=== PATIENT | female | born 1955 | race Caucasian/White ===

== ENCOUNTER 2017-11-19 22:36 | Inpatient (IN) | payer OTHER, SELFPAY ==
[2017-11-19 23:07] LABS: #Basophils 0.1 thou/uL (0.0-0.2); #Eosinphils 0.1 thou/uL (0.0-0.7); #Lymphocytes 1.5 thou/uL (1.20-3.40); #Monocytes 0.7 thou/uL (0.11-0.59); #Neutrophils 6.1 thou/uL (1.40-6.50); %Basophils 0.7 % (0.0-1.0); %Eosinophils 1.2 % (0.0-10.0); %Lymphocytes 17.9 % (21.0-51.0); %Monocytes 8.1 % (0.0-10.0); %Neutrophils 72.2 % (42.0-75.0); Hemoglobin 15.6 g/dL (12.0-16.0); Mean Corpuscular HGB CONC 31.6 g/dL (32.0-36.0); Mean Corpuscular Hemoglobin 32.3 pg (27.0-31.0); Mean Platelet Volume 8.3 fL (7.4-10.4); Platelet Count 196 thou/uL (130-400); RBC Distribution Width 13.2 % (11.5-14.5); Red Blood Cell (RBC) Count 4.81 mill/uL (4.20-5.40); White Blood Cell (WBC) Count 8.4 thou/uL (4.8-10.8)
[2017-11-19 23:13] LABS: PTT 29.3 SEC (22.9-36.1); Prothrombin Time 13.5 SEC (12.0-14.7)
--- NOTE | 2017-11-19 23:14 | RAD ---
CHEST ONE VIEW 11/19/17 HISTORY: Dyspnea. COMPARISON: Chest one view 03/10/17. FINDINGS: Heart size is enlarged. Linear opacities in the lungs are similar to the comparison examination to sl ightly improved. No pneumothorax. No large effusion. IMPRESSION: Cardiomegaly. Likely scarring in the right middle lobe and lingula. POS: [facility]
[2017-11-19 23:31] LABS: ALT (SGPT) 19 U/L (8-55); AST (SGOT) 22 U/L (5-34); Albumin 3.8 g/dL (3.5-5.0); Alkaline Phosphatase 47 U/L (40-150); Anion Gap 20 mmol/L (10-20); BUN (Urea Nitrogen) 50 mg/dL (9.8-20.1); Bilirubin, Total 0.4 mg/dL (0.2-1.2); Calc. Creatinine Clearance 0 mL/min (70-130); Calcium 9.7 mg/dL (7.8-10.44); Carbon Dioxide 27 mmol/L (22-29); Chloride 94 mmol/L (98-107); Estimated GFR-MDRD 17; Globulin 2.8 g/dL (2.4-3.5); Glucose 80 mg/dL (70-105); Protein, Total 6.6 g/dL (6.0-8.3); Sodium 135 mmol/L (136-145)
[2017-11-19 23:35] LABS: CKMB 5.9 ng/mL (0-6.6)
[2017-11-19 23:38] LABS: Troponin I 1.562 ng/mL (< 0.028)
[2017-11-19] MEDS ORDERED: Calcium Chloride 1 GM/10 ML Abboject SYRINGE ONE (23:47)
[2017-11-19] MEDS ORDERED: Insulin Regular 300 UNITS/3 ML VIAL ONE (23:47)
[2017-11-19] MEDS ORDERED: Sodium Bicarb 50 MEQ/50 ML Abboject 8.4% SYRINGE ONE (23:47)
[2017-11-19] MEDS ORDERED: Dextrose 50% Abboject 50 ML SYRINGE ONE (23:47)
[2017-11-20 02:49] LABS: Bilirubin Small (Negative); Blood, Urine Negative (Negative); Clarity CLOUDY (Clear); Glucose, Urine (Dipstick) Negative (Negative); Leukocyte Trace (Negative); Nitrite Negative (Negative); Protein, Urine (Dipstick) Trace mg/dL (Neg-Trace); Specific Gravity, Urine 1.023 (1.002-1.036); Urobilinogen 0.2 mg/dL (0.2-1.0)
[2017-11-20 02:51] LABS: Critical Call Chem Troponin I RESULT DECREASING; Troponin I 1.323 ng/mL (< 0.028)
[2017-11-20 02:51] LABS: Bacteria/HPF None Seen HPF (None Seen)
[2017-11-20 02:54] LABS: Pathc Cast-AUWi Flag 3.11 (0-2.49)
[2017-11-20 03:07] LABS: Hyaline Casts/LPF 4-6 HYALINE CAST LPF (0-3 Hyaline); Renal Epithelial None Seen HPF (0-3); Transitional Epithelial NONE SEEN HPF (0-3); Trichomonas/HPF None Seen HPF (None Seen)
[2017-11-20 03:20] LABS: Lactic Acid 3.5 mmol/L (0.5-2.2)
[2017-11-20 06:01] LABS: Troponin I 1.078 ng/mL (< 0.028)
[2017-11-20 07:35] LABS: #Lymphocytes 0.5 thou/uL (1.20-3.40); #Monocytes 0.1 thou/uL (0.11-0.59); #Neutrophils 7.1 thou/uL (1.40-6.50); %Lymphocytes 6.8 % (21.0-51.0); %Monocytes 1.4 % (0.0-10.0); %Neutrophils 91.8 % (42.0-75.0); Hemoglobin 15.4 g/dL (12.0-16.0); Mean Corpuscular HGB CONC 32.2 g/dL (32.0-36.0); Mean Corpuscular Hemoglobin 32.2 pg (27.0-31.0); Mean Platelet Volume 8.4 fL (7.4-10.4); Platelet Count 187 thou/uL (130-400); RBC Distribution Width 13.2 % (11.5-14.5); Red Blood Cell (RBC) Count 4.77 mill/uL (4.20-5.40); White Blood Cell (WBC) Count 7.7 thou/uL (4.8-10.8)
[2017-11-20 07:47] LABS: Anion Gap 18 mmol/L (10-20); BUN (Urea Nitrogen) 56 mg/dL (9.8-20.1); Calc. Creatinine Clearance 0 mL/min (70-130); Calcium 9.5 mg/dL (7.8-10.44); Carbon Dioxide 29 mmol/L (22-29); Chloride 93 mmol/L (98-107); Estimated GFR-MDRD 19; Glucose 365 mg/dL (70-105); Potassium 5.5 mmol/L (3.5-5.1); Sodium 134 mmol/L (136-145)
[2017-11-20] MEDS ORDERED: Sodium Chloride 0.9% 1,000 ML IV SCH (09:22)
[2017-11-20] MEDS ORDERED: Senokot 8.6 MG TAB PO PRN (09:22)
[2017-11-20] MEDS ORDERED: Guaifenesin DM 100-10/5 ML UDCUP PO PRN (09:22)
[2017-11-20] MEDS ORDERED: cefTRIAXone\\ROCEPHIN 1 GM in Sodium Chloride 0.9% 100 ML IVPB SCH (09:22)
[2017-11-20] MEDS: cefTRIAXone\\ROCEPHIN 1 GM, Syringe 0.4 ML in Sterile Water 9.6 ML SLOW IVP SCH (10:55)
[2017-11-20] MEDS: Azithromycin 500 MG in Sodium Chloride 0.9% 250 ML 250 ML IVPB SCH (10:57)
[2017-11-20] MEDS: Sodium Chloride 0.9% 1,000 ML IV SCH ×2 (11:02→20:32)
[2017-11-20 11:44] VITALS: BMI 55.0
--- NOTE | 2017-11-20 12:18 | ULT ---
BILATERAL RENAL ULTRASOUND: Date: 11/20/17 COMPARISON: None. HISTORY: Renal failure. TECHNIQUE: Multiplanar Mlaone scale sonographic imaging of the kidneys and urinary bladder obtained. FINDINGS: Images of the urinary bladder are grossly unremarkable. Urinary bladder volume is estimated at 247 mL . The right kidney measures 11.3 x 6.1 x 6.5 cm and demonstrates no mass, hydronephrosis, or stone. The left kidney measures 11.1 x 5.1 x 6.5 cm and demonstrates no mass, hydronephrosis, or stone. Detailed assessment of the kidneys, especially the left kidney, is limited on the basis of patient cathy dy habitus. IMPRESSION: Grossly unremarkable renal ultrasound. POS: [facility]
--- NOTE | 2017-11-20 14:13 | HP ---
REASON FOR ADMISSION: Acute respiratory failure with hypoxia, acute encephalopathy, acute COPD exace rbation, possible sleep apnea with hypoventilation, demand ischemia. HISTORY OF PRESENT ILLNESS: The patient gives history of having caries with abscess from last 3 week s. She has been off and on antibiotics, a total of 2 cycles of antibiotics has been given by her den tist. She finally got an incision and drainage done a week back. She had seen Dr. Brown, dentist. Currently, she is on amoxicillin and Flagyl from the 10th of this month. Last night, she was confuse d and became more short of breath. Her finally called EMS and the patient was brought to [facility] room. The patient has not had a sleep study so far due to insurance issues. She was supposed to get a sleep study at Dr. Alex's office, but has not been able to schedule one due to insurance . She saw Dr. Olson, her primary care physician, a week back. No complaints of chest pain or palp itation at present. She is currently at 45 degrees head end elevation in the ER. PAST MEDICAL/SURGICAL HISTORY: Obesity likely obstructive sleep apnea, hypoventilation syndrome due to obesity, diabetes mellitus type 2, dyslipidemia, prior stent to RCA in 06/2012, history of CHF wit h ejection fraction of around 40%, tobacco abuse, eye surgery. CURRENT MEDICATIONS: The patient is on Coreg 25 mg twice daily, Flagyl 500 mg twice daily from 11/16, amoxicillin 500 mg 3 times daily from 11/16/2017, 70/30 insulin 40 units twice daily, Plavix 7 5 mg daily, aspirin 81 mg daily, metformin 1 gram twice daily. ALLERGIES: No known drug allergies. PERSONAL HISTORY: Smokes one pack a day, does not abuse alcohol or drugs. Lives with her . FAMILY HISTORY: Mom at the age of 63 years. She has had history of heart failure. Father at the age of 74 years and she does not recall much about the reason why he . REVIEW OF SYSTEMS: The following complete review of systems was negative, unless otherwise mentioned in the HPI or below: Constitutional: Weight loss or gain, ability to conduct usual activities. Skin: Rash, itching. Eyes: Double vision, pain. ENT/Mouth: Nose bleeding, neck stiffness, pain, tenderness. Cardiovascular: Palpitations, dyspnea on exertion, orthopnea. Respiratory: Shortness of breath, wheezing, cough, hemoptysis, fever or night sweats. Gastrointestinal: Poor appetite, abdominal pain, heartburn, nausea, vomiting, constipation, or diarrhea. Genitourinary: Urgency, frequency, dysuria, nocturia. Musculoskeletal: Pain, swelling. Neurologic/Psychiatric: Anxiety, depression. Allergy/Immunologic: Skin rash, bleeding tendency. PHYSICAL EXAMINATION: GENERAL: The patient is a 62-year-old female who is currently in mild to moderate respiratory distre ss. She is currently on a nonrebreather; here, saturating 94%. VITAL SIGNS: Blood pressure 104/56, pulse 74 per minute, respiratory rate 26 per minute, temperature 98.1 degrees Fahrenheit, saturating 94% on nonrebreather. NECK: Supple, no elevated JVD. HEENT: Extraocular muscles intact. Pupils reacting to light. Oral cavity and mucous membranes are dry. No exudates or congestion. CARDIOVASCULAR: S1, S2 heard. Regular rhythm. RESPIRATORY: Air entry 1+ bilateral. Scattered rhonchi plus bilateral basal rales plus. ABDOMEN: Soft, bowel sounds heard. No tenderness, rigidity or guarding. EXTREMITIES: No peripheral edema or calf tenderness. VASCULAR: Peripheral pulses 1+ bilateral. No ischemic ulcerations or gangrene. CENTRAL NERVOUS SYSTEM: No gross focal deficits seen. The patient is lethargic, but responds to rep eated verbal questions well. PSYCHIATRIC: Cannot be accurately assessed due to her lethargy at present, but no obvious hallucinat ions or delusions. LABORATORY AND X-RAY FINDINGS: EKG done shows normal sinus rhythm at 79 beats per minute. There is poor R-wave progression. White count of 8, H&H 15 and 49, platelet count 196, MCV is 102 with 72% ne utrophils. Potassium was 6.0 with serum bicarbonate of 27 on arrival here, BUN of 50, creatinine 2.8 . BNP 313, albumin is 3.8, troponin I peaking up to 1.32, CK-MB 5.9. Lactic acid was 3.5. Repeat m etabolic panel this morning shows potassium of 5.5, BUN 56, creatinine 2.5. Chest x-ray done shows c ardiomegaly with likely scarring of the right middle lobe and lingula. CLINICAL IMPRESSION AND PLAN: The patient will be admitted to [facility] for acute respiratory failure wit h hypoxia, likely a combination of chronic obstructive pulmonary disease exacerbation, hypoventilatio n syndrome with obesity, and sleep apnea. She also has a troponin of 1.3, likely demand ischemia fro m hypoxia. We will place her on nitro paste 1/2 inch q.8 hourly, aspirin 81 mg daily, Plavix 75 mg d aily. The patient most likely will need BiPAP and will transition her from nonrebreather to BiPAP. She also has acute kidney injury likely a combination of antibiotics and medications that she is taki ng for her tooth abscess plus dehydration. She will be on normal saline at 100 mL per hour. I have consulted Dr. Bolaños for Nephrology. We will continue her on Levemir at 30 units at bedtime for now unt il her renal function improves. We will also continue her Synthroid, empiric Zithromax, and ceftriax one until she comes off BiPAP. Echo with 2D Doppler for LV function and ultrasound of the kidneys as well to rule out obstructive nephropathy.
--- NOTE | 2017-11-20 14:16 | CON ---
DATE OF CONSULTATION: 11/20/2017 RENAL MEDICINE HISTORY OF PRESENT ILLNESS: Ms. Nicholson is a 62-year-old white female who was admitted for acute vahid rtness of breath. She was found to be having COPD exacerbation. Please note she has history of morb id obesity and obstructive sleep apnea. We are now being consulted for her acute kidney injury. REVIEW OF SYSTEMS: Positive for shortness of breath, positive for dry cough, no fever or chills, no diarrhea or constipation, no abdominal pain, no chest pain, no nausea, no vomiting. No joint pains, no new skin rash. Appetite and energy level is decreased. No dysuria, no urinary frequency. No hea dache, no sore throat, no runny nose, no diplopia, no nausea or vomiting, no hematochezia, no melena, no hematemesis. HOME MEDICATIONS: Included the following: Metformin 1000 mg p.o. b.i.d., Benadryl 25 mg q.8 h., Omid nzyme Q 300 mg daily, Crestor 20 mg tab at bedtime, levothyroxine 75 mcg every day, insulin detemir 3 0 units subcutaneous b.i.d., ibuprofen 600 mg p.o. q.6 h, gabapentin 300 mg p.o. b.i.d., furosemide 4 0 mg daily, vitamin D2 400 units day, Farxiga 10 mg q.a.m., Plavix 75 mg once a day, Celexa 40 mg kitty ly, carvedilol 25 mg p.o. b.i.d., Symbicort 2 puffs b.i.d., aspirin 81 mg tab once a day. PAST MEDICAL HISTORY: Obstructive sleep apnea, COPD, type 2 diabetes mellitus, hyperlipidemia, hypot hyroidism, chronic pain, CHF, depression, history of also chronic tobacco use, and coronary artery di sease. PAST SURGICAL HISTORY: Includes the followin. Status post cardiac catheterization with coronary stent placement. 2. Status post eye surgery. SOCIAL HISTORY: The patient currently lives in [place]. She has a history of chronic smoking of 30-pklb-hlrw history. No exposure to any environmental toxic substances. 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 Active lifestyle. FAMILY HISTORY: Noncontributory. ALLERGIES: No known drug allergies. TRAUMA: None. IMMUNIZATIONS: Up to date. HOSPITALIZATIONS: Please see past medical history. PHYSICAL EXAMINATION: VITAL SIGNS: Blood pressure is noted at 124/89 with a heart rate of 89, respiratory rate 20, and pul se ox 97% on 2 liters. GENERAL: Awake, supine, morbidly obese. SKIN: Adequate turgor. HEENT: Pinkish conjunctivae, anicteric sclerae. NECK: No neck mass, no carotid bruits, no JVD. CHEST: No deformities. LUNGS: Decreased breath sounds with occasional wheezing. HEART: Normal sinus rhythm. No murmur, no gallops or rubs. ABDOMEN: Globular, soft, nontender, no masses. EXTREMITIES: Trace edema. NEUROLOGIC: Awake, oriented to 3 spheres. Moving all extremities. No tremors, no asterixis. IMAGING: Chest x-ray of 11/19/2017 showed cardiomegaly with linear opacities in the past in the lung s - baseline findings, no large effusions, no pneumothorax, most likely scarring in the right middle lobe. LABORATORY DATA: Laboratories of 11/20/2017, sodium 134, chloride 93, carbon dioxide 25, potassium i s 5.5, BUN 56, creatinine 2.53, glucose 365, GFR 19 mL per minute, calcium 9.5. Troponin I 1.078. 0 11/19/2017, BUN was 50, creatinine 2.8. Urinalysis of 11/20/2017, specific gravity is 1.023, no casts noted, rbc 4-6, wbc 4-6. ASSESSMENT AND PLAN: 1. Acute kidney injury - I suspect hemodynamically mediated renal dysfunction. Slightly improving r enal function with gentle volume repletion. In addition, urinalysis did not suggest any acute tubula r necrosis, suggested by the absence of any pigmented granular cast. Please note the urine was quite concentrated with a specific gravity of 1.033. Renal ultrasound is currently pending. For the cornell nt, agree with current management. Continue gentle volume repletion. No indication for any dialytic intervention. 2. Hyperkalemia. Potassium was noted to be at 6.0 on admission. She received 1 dose of Kayexalate and this improved the potassium to 5.5. Please note the patient has been taking NSAIDs as well as La six at home. My suggestion is to hold off any diuretics or NSAID use with this patient. Agree with gentle volume repletion, normal saline 100 mL per hour. We will recheck base met and CBC in a.m.
[2017-11-20] MEDS ORDERED: Morphine 2 MG/ML SYRINGE SLOW IVP PRN (14:48)
[2017-11-20] MEDS: Nitroglycerin 2% Ointment 1 INCH/1 GM Packet TOP SCH ×2 (14:57→22:08)
[2017-11-20] MEDS: Heparin 5,000 UNITS/ML VIAL SC SCH ×2 (14:58→20:34)
[2017-11-20] MEDS: Acetaminophen 325 MG TAB PO PRN (16:34)
--- NOTE | 2017-11-20 19:19 | CON ---
DATE OF CONSULTATION: 11/20/2017 REASON FOR CONSULTATION: Shortness of breath. PRIMARY AMBULATORY SERVICE REPRESENTATIVE: Bharat Russo M.D. HISTORY OF PRESENT ILLNESS: Ms. Nicholson is a pleasant 62-year-old obese woman, who recently states s he has mental status changes. She is still confused. She had lots of leveled according to her husba nd. Over the last several weeks, she has had a tooth infection and took high dose nonsteroidal thera py 800 mg every 3 hours for 4 days. She presented with the above in addition to shortness of breath. Her troponin has been mildly elevated. She continues to take prednisone. PAST MEDICAL HISTORY: CAD status post stent placement to the right coronary artery by Dr. Enoc granger, COPD, diabetes mellitus, hypertension, hyperlipidemia. ALLERGIES: None. MEDICATIONS: Include prednisone, Coreg, Amoxil, Plavix, metformin. SOCIAL HISTORY: She continues to smoke one pack per day. FAMILY HISTORY: Positive for CAD. REVIEW OF SYSTEMS: Ten point review of systems is reviewed and as is above negative. PHYSICAL EXAMINATION: GENERAL: She is morbidly obese with BMI of 55. VITAL SIGNS: Blood pressure 127/83, pulse 84, temperature 98.4. NEUROLOGIC: The patient is alert and oriented x3 with no focal neurologic deficits. HEENT: Sclerae without icterus. Mouth has moist mucous membranes with normal pallor. NECK: No JVD. Carotid upstroke brisk. No bruits bilaterally. LUNGS: Clear to auscultation with unlabored respirations. BACK: No scoliosis or kyphosis. CARDIAC: Regular rate and rhythm with normal S1 and S2. No S3 or S4 noted. No significant rubs, mu rmurs, thrills, or gallops noted throughout the precordium. PMI is not displaced. There is no zackery ternal heave. ABDOMEN: Soft, nontender, nondistended. No peritoneal signs present. No hepatosplenomegaly. No ab normal striae. EXTREMITIES: 2+ femoral and 2+ dorsalis pedis pulses. No cyanosis, clubbing, or edema. SKIN: No gross abnormalities. LABORATORY DATA: Hemoglobin 15.4, troponin 1.078, creatinine 2.53. IMPRESSION: 1. Elevated troponin. 2. Shortness of breath. 3. Confusion. 4. Coronary artery disease. 5. Tobacco abuse. RECOMMENDATIONS: Ms. Nicholson now appears to be resting comfortably. Her BNP was now markedly elevat ed at 315. Her increase in troponin is likely secondary to demand ischemia. She does have an occlud ed LAD and likely demand ischemia. Given her creatinine, we would continue with conservative treatme nt. Continue Plavix. We will hold metformin due to renal insufficiency. We would recommend an echo with Doppler. Further recommendations per Dr. Bharat Russo in a.m.
[2017-11-20] MEDS: Mometasone/Formoterol 120 PUFF INHALER INH SCH (19:57)
[2017-11-20] MEDS: Rosuvastatin 20 MG TAB PO SCH (20:33)
[2017-11-20] MEDS: Gabapentin 300 MG CAP PO SCH (20:33)
[2017-11-20] MEDS: Famotidine 20 MG TAB PO SCH (20:33)
[2017-11-20] MEDS: Carvedilol 3.125 MG TAB PO SCH (20:33)
[2017-11-20] MEDS ORDERED: Insulin Detemir 100 UNITS/ML 30 UNITS in Pre-Filled Syringe 1 EACH SC SCH (21:00)
[2017-11-20] MEDS ORDERED: Dextrose 50% Abboject 50 ML SYRINGE IVP PRN (21:19)
[2017-11-20] MEDS ORDERED: Dextrose 5% in Water 1,000 ML IV PRN (21:19)
--- NOTE | 2017-11-20 21:46 | CON ---
DATE OF CONSULTATION: 11/20/2017 Mala Nicholson is a 62-year-old morbidly obese female with 153 kg, presented with confusion and shortn ess of breath. Her says she was coughing for the last 2 days. She went to see her primary c are physician somewhere near [place], was given some antibiotics without much relief. She is s till smoking apparently, coughing some purulent sputum. Denies any chest pain or hemoptysis. Her sats were 80%. EMS was called in. After she was confused and agitated, she has been in the ER o vernight now. She now on a step down unit to MICU. She can barely walk even across the spears without getting markedly short of breath. PAST MEDICAL HISTORY: Congestive cardiomyopathy, hypertension, hyperlipidemia, diabetes, sleep apnea , COPD. PAST SURGICAL HISTORY: Cardiac stents, eye transplant. SOCIAL HISTORY: Ongoing tobacco abuse. MEDICATIONS: From home includes metformin, CQ, Crestor 20, Synthroid 75, insulin, Neurontin, Lasix 4 0, Plavix 75, Celexa 40, Coreg, Symbicort. She has now been started on Dulera, Symbicort and antibio tics. REVIEW OF SYSTEMS: Otherwise, 10 point negative. PHYSICAL EXAMINATION: VITAL SIGNS: Sats are 93 on 2 liters, respiratory rate 20, temperature 97, blood pressure 130/95. CHEST: Decreased breath sounds, minimal wheezing, crackles. CARDIAC: Normal S1, S2. No gallops. ABDOMEN: Soft, no masses. LABORATORY AND DIAGNOSTICS: X-ray shows CHF findings, cardiomegaly cephalization. White count 10,00 0, H&H 15 and 47, platelet 47, creatinine 2.5, BUN 56, troponin is elevated. Urine is unremarkable. IMPRESSION: 1. Acute on chronic respiratory failure, morbid obesity. 2. Chronic obstructive pulmonary disease. 3. Sleep apnea, never had a formal sleep study. 4. Renal failure. 5. Congestive heart failure, last admission. Echocardiogram depressed about 40%. PLAN: Ordered nocturnal bilevel otherwise continue her antibiotics as prescribed, neb treatments, st eroids, etc. Notify Dr. Alex. This is a 70 minutes of which 50% of the time was spent at the bedside with direct patient care.
[2017-11-20] MEDS: HumaLOG 300 UNITS/3 ML VIAL SC PRN (22:07)
[2017-11-21] MEDS: Acetaminophen 325 MG TAB PO PRN (03:12)
[2017-11-21 03:58] LABS: #Lymphocytes 0.4 thou/uL (1.20-3.40); #Monocytes 0.3 thou/uL (0.11-0.59); #Neutrophils 6.8 thou/uL (1.40-6.50); %Lymphocytes 5.8 % (21.0-51.0); %Monocytes 4.2 % (0.0-10.0); Hemoglobin 14.8 g/dL (12.0-16.0); Mean Corpuscular HGB CONC 32.2 g/dL (32.0-36.0); Mean Corpuscular Hemoglobin 32.2 pg (27.0-31.0); Mean Platelet Volume 8.4 fL (7.4-10.4); Platelet Count 192 thou/uL (130-400); RBC Distribution Width 13.1 % (11.5-14.5); Red Blood Cell (RBC) Count 4.59 mill/uL (4.20-5.40); White Blood Cell (WBC) Count 7.5 thou/uL (4.8-10.8)
[2017-11-21 04:20] LABS: Anion Gap 15 mmol/L (10-20); BUN (Urea Nitrogen) 46 mg/dL (9.8-20.1); Calc. Creatinine Clearance 98 mL/min (70-130); Calcium 9.2 mg/dL (7.8-10.44); Carbon Dioxide 29 mmol/L (22-29); Cardiac Risk 4.6 (Less than 4.5); Chloride 96 mmol/L (98-107); Cholesterol 175 mg/dl (< 200 Desired); Estimated GFR-MDRD 36; Glucose 453 mg/dL (70-105); HDL Cholesterol 38 mg/dL (>60 Neg Risk); LDL Cholesterol, Calculated 110 mg/dL; Potassium 4.7 mmol/L (3.5-5.1); Sodium 135 mmol/L (136-145); Triglycerides 133 mg/dL (Less than 150)
[2017-11-21] MEDS: Levothyroxine Sodium 75 MCG TAB PO SCH (06:27)
[2017-11-21] MEDS: HumaLOG 300 UNITS/3 ML VIAL SC PRN ×3 (06:28→20:06)
[2017-11-21] MEDS: Nitroglycerin 2% Ointment 1 INCH/1 GM Packet TOP SCH (06:29)
[2017-11-21] MEDS: Sodium Chloride 0.9% 1,000 ML IV SCH (06:38)
[2017-11-21] MEDS: Aspirin 325 MG TAB PO SCH (08:19)
[2017-11-21] MEDS: Citalopram 20 MG TAB PO SCH (08:21)
[2017-11-21] MEDS: Gabapentin 300 MG CAP PO SCH ×2 (08:21→20:08)
[2017-11-21] MEDS: Clopidogrel Bisulfate 75 MG TAB PO SCH (08:21)
[2017-11-21] MEDS: Carvedilol 3.125 MG TAB PO SCH ×2 (08:21→20:08)
[2017-11-21] MEDS: Heparin 5,000 UNITS/ML VIAL SC SCH ×3 (08:23→20:08)
[2017-11-21] MEDS: Famotidine 20 MG TAB PO SCH ×2 (08:30→20:08)
[2017-11-21] MEDS: Mometasone/Formoterol 120 PUFF INHALER INH SCH (08:56)
[2017-11-21] MEDS: Insulin Detemir 100 UNITS/ML 30 UNITS in Pre-Filled Syringe 1 EACH SC SCH ×2 (09:35→20:06)
[2017-11-21] MEDS: Azithromycin 500 MG in Sodium Chloride 0.9% 250 ML 250 ML IVPB SCH (09:37)
[2017-11-21] MEDS: cefTRIAXone\\ROCEPHIN 1 GM, Syringe 0.4 ML in Sterile Water 9.6 ML SLOW IVP SCH (09:37)
--- NOTE | 2017-11-21 11:50 | PDOC.PN ---
- Subjective Encounter Start Date: 11/21/17 Encounter Start Time: 11:20 Subjective: overall better -: c/o LE edema, couldn't sleep, her diet is not right, she cant think right- -: -still. - Objective Resuscitation Status: Resuscitation Status FULL:Full Resuscitation MAR Reviewed: Yes Vital Signs & Weight: Vital Signs (12 hours) Temp Pulse Resp BP Pulse Ox 11/21/17 08:55 78 18 94 L 11/21/17 08:00 98.2 F 78 18 96 11/21/17 07:10 98.2 F 82 18 138/77 96 11/21/17 05:19 94 L 11/21/17 04:25 97.4 F L 91 22 H 138/80 93 L 11/21/17 01:22 88 18 94 L 11/21/17 00:21 98.6 F 84 16 125/80 96 11/21/17 00:09 87 20 95 Weight Weight 338 lb 6.553 oz I&O: 11/20/17 11/21/17 11/22/17 06:59 06:59 06:59 Intake Total 3100 480 Output Total 2325 Balance 775 480 Result Diagrams: 11/21/17 03:44 11/21/17 03:44 Additional Labs: Accuchecks 11/21/17 11/20/17 06:27 20:31 POC Glucose 381 H 491 H Phys Exam - Physical Examination HEENT: PERRLA, moist MMs Neck: no JVD, supple Respiratory: no wheezing, no rales Cardiovascular: RRR, no significant murmur Gastrointestinal: soft, non-tender, positive bowel sounds Musculoskeletal: pulses present mild edema Neurological: non-focal, moves all 4 limbs Dx/Plan (1) JEANETTE (acute kidney injury) Code(s): N17.9 - ACUTE KIDNEY FAILURE, UNSPECIFIED Status: Acute Comment: resolving (2) CHF (congestive heart failure) Code(s): I50.9 - HEART FAILURE, UNSPECIFIED Status: Chronic Qualifiers: Congestive heart failure type: diastolic (3) Morbid obesity Code(s): E66.01 - MORBID (SEVERE) OBESITY DUE TO EXCESS CALORIES Status: Chronic (4) Acute respiratory failure with hypoxia Code(s): J96.01 - ACUTE RESPIRATORY FAILURE WITH HYPOXIA Status: Acute Comment: resolving (5) COPD exacerbation Code(s): J44.1 - CHRONIC OBSTRUCTIVE PULMONARY DISEASE W (ACUTE) EXACERBATION Status: Acute (6) Obesity hypoventilation syndrome Code(s): E66.2 - MORBID (SEVERE) OBESITY WITH ALVEOLAR HYPOVENTILATION Status : Chronic (7) DM type 2 (diabetes mellitus, type 2) Status: Chronic Qualifiers: Diabetes mellitus complication status: with hyperglycemia Diabetes mellitus long-term insulin use: with [employer] use Qualified Code(s): E11.65 - Type 2 diabetes mellitus with hyperglycemia; Z79.4 - [employer] (current) use of insulin; Z79.4 - shelter (current) use of insulin; Z79.4 - shelter ( current) use of insulin; Z79.4 - shelter (current) use of insulin (8) Hypertension Code(s): I10 - ESSENTIAL (PRIMARY) HYPERTENSION Status: Chronic Qualifiers: Hypertension type: essential hypertension Qualified Code(s): I10 - Essential (primary) hypertension (9) CÉSAR (obstructive sleep apnea) Code(s): G47.33 - OBSTRUCTIVE SLEEP APNEA (ADULT) (PEDIATRIC) Status: Chronic (10) Demand ischemia of myocardium Code(s): I24.8 - OTHER FORMS OF ACUTE ISCHEMIC HEART DISEASE Status: Acute - Plan pt with multiple medical problems -: reduce steroids, cpap qhs -: will switch to oral omnicef -: ef is 55% with diastolic dysfunction -: increase levemir to bid, oob to chair/ambulate with oxygen * . on asp and plavix, stress test (likely will be a 2 day due to body habitus) May transfer to telemetry if ok with specialists and is off bipap requirements Review of Systems - Medications/Allergies Allergies/Adverse Reactions: Allergies Allergy/AdvReac Type Severity Reaction Status Date / Time No Known Allergies Allergy Verified 11/20/17 18:45 Medications: Current Medications Acetaminophen (Tylenol) 650 mg PO Q4H PRN PRN Reason: Headache/Fever or Pain Last Admin: 11/21/17 03:12 Dose: 650 mg Albuterol/Ipratropium (Duoneb) 3 ml NEB [id number] [facility] Last Admin: 11/21/17 08:55 Dose: 3 ml Aspirin (Aspirin) 325 mg PO DAILY [facility] Last Admin: 11/21/17 08:19 Dose: 325 mg Carvedilol (Coreg) 3.125 mg PO BID [facility] Last Admin: 11/21/17 08:21 Dose: 3.125 mg Citalopram Hydrobromide (Celexa) 40 mg PO DAILY [facility] Last Admin: 11/21/17 08:21 Dose: Not Given Clopidogrel Bisulfate (Plavix) 75 mg PO DAILY [facility] Last Admin: 11/21/17 08:21 Dose: 75 mg Dextrose/Water (Dextrose 50%) 25 gm IVP PRN PRN PRN Reason: HYPOGLYCEMIA PROTOCOL Famotidine (Pepcid) 20 mg PO BID [facility] Last Admin: 11/21/17 08:30 Dose: 20 mg Gabapentin (Neurontin) 300 mg PO BID [facility] Last Admin: 11/21/17 08:21 Dose: 300 mg Glucagon (Glucagon) 1 mg IM PRN PRN PRN Reason: HYPOGLYCEMIA PROTOCOL Guaifenesin/Dextromethorphan (Robitussin Dm) 15 ml PO Q4H PRN PRN Reason: Cough Heparin Sodium (Porcine) (Heparin) 5,000 units SC TID [facility] Last Admin: 11/21/17 08:23 Dose: 5,000 units Azithromycin 500 mg/ Sodium (Chloride) 250 mls @ 250 mls/hr IVPB 1000 [facility] Last Admin: 11/21/17 09:37 Dose: 250 mls Ceftriaxone Sodium 1 gm/ (Syringe 0.4 ml/ Sterile Water) 10 mls @ 120 mls/hr SLOW IVP 1000 [facility] Last Admin: 11/21/17 09:37 Dose: 10 mls Dextrose/Water (D5w) 1,000 mls @ 0 mls/hr IV INF PRN; As Directed PRN Reason: HYPOGLYCEMIA PROTOCOL Insulin Detemir 30 units/ (Miscellaneous Medication) 0.3 mls @ 0 mls/hr SC BID [facility] Last Admin: 11/21/17 09:35 Dose: 0.3 mls Insulin Human Lispro (Humalog) 0 units SC .AGGRESSIVE SLIDING PRN; Protocol PRN Reason: AGGRESSIVE SLIDING SCALE Last Admin: 11/21/17 06:28 Dose: 13 unit Insulin Human Lispro (Humalog) 0 units SC .BEDTIME SLIDING SC PRN; Protocol PRN Reason: BEDTIME SLIDING SCALE Last Admin: 11/20/17 22:07 Dose: 5 unit Levothyroxine Sodium (Synthroid) 75 mcg PO 0600 [facility] Last Admin: 11/21/17 06:27 Dose: 75 mcg Methylprednisolone Sodium Succinate (Solu-Medrol) 20 mg IVP Q8HR [facility] Mometasone Furoate/Formoterol Fumar (Dulera 200 Mcg/5 Mcg Inhaler) 2 puff INH BID-RT [facility] Last Admin: 11/21/17 08:56 Dose: 2 puff Morphine Sulfate (Morphine) 2 mg SLOW IVP Q4H PRN PRN Reason: Chest Pain/BP Elevations Last Admin: 11/20/17 22:11 Dose: 2 mg Rosuvastatin Calcium (Crestor) 20 mg PO HS [facility] Last Admin: 11/20/17 20:33 Dose: 20 mg Senna (Senokot) 2 tab PO HSPRN PRN PRN Reason: Constipation Sodium Chloride (Flush - Normal Saline) 10 ml IVF Q12HR [facility] Last Admin: 11/21/17 08:23 Dose: 10 ml Sodium Chloride (Flush - Normal Saline) 10 ml IVF PRN PRN PRN Reason: Saline Flush Tramadol HCl (Ultram) 50 mg PO Q6H PRN PRN Reason: Moderate Pain (4-6)
--- NOTE | 2017-11-21 15:44 | PRG ---
DATE OF SERVICE: 11/21/2017 SERVICE: Pulmonary Medicine. INTERVAL HISTORY: The patient is doing fine from a respiratory standpoint. She is breathing comfort ably. There has been no interval change to her condition. She did bring her CPAP unit in from home as she does not like the one that is here. Otherwise, there were no significant overnight events. PHYSICAL EXAMINATION: VITAL SIGNS: Afebrile, with T-max of 99.2, pulse 85, blood pressure 140/92, respirations 18, saturat ion 96% on 2 liters nasal cannula. GENERAL: Patient is awake, alert, no apparent distress. LUNGS: Excellent air entry. There is absolutely no prolonged expiratory phase. Dependent crackles are present. HEART: Normal rate, regular. ABDOMEN: Soft, nontender, and nondistended. Bowel sounds are positive. MUSCULOSKELETAL: No cyanosis or clubbing. There is 2+ pitting throughout. GENITOURINARY: No Gross catheter in place. NEUROLOGIC: Grossly nonfocal. LABORATORY DATA: WBC 7.5, hemoglobin 14.8, platelets 192,000. INR 1.0. Creatinine 1.49 and aggress ively down trending. BUN 46. Basic metabolic profile is otherwise unremarkable. Lactate is 3.5, tr oponin 1.07 and down trending. BNP elevated at 313. Urinalysis is unremarkable. Blood cultures x2 are unremarkable. ASSESSMENT: 1. Acute hypoxic respiratory failure. 2. Acute on chronic diastolic heart failure. 3. Morbid obesity. 4. Obstructive sleep apnea, very likely. 5. Acute kidney injury on chronic kidney disease. PLAN: We will continue her nebulized medications, antibiotics and steroids. We will back off on the IV route. Now, the kidneys are improving, we will go ahead and provide her with a couple doses of L asix. She will continue using noninvasive therapy at night and she is going to try to bring her home unit. I would very much like to set her up with an outpatient polysomnogram as soon as this is feas ible.
[2017-11-21] MEDS: Rosuvastatin 20 MG TAB PO SCH (20:08)
[2017-11-22] MEDS: Furosemide 40 MG/4 ML VIAL SLOW IVP SCH (06:41)
[2017-11-22] MEDS: Levothyroxine Sodium 75 MCG TAB PO SCH (06:41)
[2017-11-22] MEDS ORDERED: Regadenoson 0.4 MG/5 ML SYRINGE ONE (08:18)
--- NOTE | 2017-11-22 09:02 | PRG ---
DATE OF SERVICE: 11/22/2017 SERVICE: Pulmonary Medicine. INTERVAL HISTORY: The patient is doing fine from a respiratory standpoint. She is breathing comfort ably. She really has no specific complaints of fevers, chills, nausea, vomiting, or chest discomfort presently. Otherwise, there were no overnight events. She did bring her home BiPAP unit. She expe cted somebody else to set it up. As such, she remained on our unit overnight. She had multiple comp laints associated with that. I did remind her that she is more than capable of setting up her own Bi PAP unit. I told her that my expectations are that she sets her own unit up tonight and that we woul d provide her with some sterile water if she needs it. PHYSICAL EXAMINATION: VITAL SIGNS: Afebrile, pulse 72, blood pressure 113/88, respirations 24, saturation 90% on 2 liters nasal cannula. GENERAL: Patient is awake, alert, in no apparent distress. LUNGS: Decent air entry. There is no prolonged expiratory phase. I do hear some rhonchi, but they clear with cough. Crackles are present dependently. HEART: Normal rate, regular. ABDOMEN: Soft, nontender, nondistended. Bowel sounds are positive. MUSCULOSKELETAL: No cyanosis or clubbing. There is 2+ pitting in the bilateral lower extremities. NEUROLOGIC: Grossly nonfocal. LABORATORY DATA: No other laboratories. Blood cultures x2 are unremarkable. ASSESSMENT: 1. Acute hypoxic respiratory failure. 2. Acute on chronic diastolic heart failure. 3. Morbid obesity. 4. Obstructive sleep apnea, very likely. 5. Acute kidney injury on chronic kidney disease. PLAN: She will continue using her BiPAP at night and whenever she is sleeping. She does remain volu me overloaded. Her urine output is starting to chart picker and her kidney injury is cleared. We will co ntinue diuresing until she returns to euvolemia. Pulmonary Critical Care will continue to follow skyler winkler the patient remains in this location, but from my perspective, she is stable for transition to the telemetry unit.
[2017-11-22] MEDS: Heparin 5,000 UNITS/ML VIAL SC SCH ×3 (09:10→20:59)
[2017-11-22] MEDS: Clopidogrel Bisulfate 75 MG TAB PO SCH (09:11)
[2017-11-22] MEDS: predniSONE 20 MG TAB PO SCH (09:11)
[2017-11-22] MEDS: Citalopram 20 MG TAB PO SCH (09:11)
[2017-11-22] MEDS: Gabapentin 300 MG CAP PO SCH ×2 (09:11→20:59)
[2017-11-22] MEDS: Cefdinir 300 MG CAP PO SCH (09:11)
[2017-11-22] MEDS: Aspirin 325 MG TAB PO SCH (09:11)
[2017-11-22] MEDS: Famotidine 20 MG TAB PO SCH ×2 (09:11→20:59)
[2017-11-22] MEDS: traMADol HCl 50 MG TAB PO PRN (09:18)
[2017-11-22 09:26] LABS: #Lymphocytes 1.1 thou/uL (1.20-3.40); #Monocytes 0.9 thou/uL (0.11-0.59); #Neutrophils 6.1 thou/uL (1.40-6.50); %Basophils 0.4 % (0.0-1.0); %Eosinophils 0.6 % (0.0-10.0); %Lymphocytes 13.5 % (21.0-51.0); %Monocytes 10.9 % (0.0-10.0); %Neutrophils 74.6 % (42.0-75.0); Hemoglobin 15.5 g/dL (12.0-16.0); Mean Corpuscular HGB CONC 31.6 g/dL (32.0-36.0); Mean Corpuscular Hemoglobin 31.7 pg (27.0-31.0); Mean Platelet Volume 8.2 fL (7.4-10.4); Platelet Count 209 thou/uL (130-400); RBC Distribution Width 13.1 % (11.5-14.5); Red Blood Cell (RBC) Count 4.89 mill/uL (4.20-5.40); White Blood Cell (WBC) Count 8.2 thou/uL (4.8-10.8)
[2017-11-22 09:32] LABS: Anion Gap 15 mmol/L (10-20); BUN (Urea Nitrogen) 34 mg/dL (9.8-20.1); Calc. Creatinine Clearance 173 mL/min (70-130); Calcium 9.8 mg/dL (7.8-10.44); Carbon Dioxide 30 mmol/L (22-29); Chloride 102 mmol/L (98-107); Estimated GFR-MDRD 66; Glucose 99 mg/dL (70-105); Potassium 4.2 mmol/L (3.5-5.1); Sodium 143 mmol/L (136-145)
[2017-11-22] MEDS: Carvedilol 3.125 MG TAB PO SCH ×2 (12:14→21:00)
[2017-11-22] MEDS: Insulin Detemir 100 UNITS/ML 30 UNITS in Pre-Filled Syringe 1 EACH SC SCH ×2 (12:15→21:07)
--- NOTE | 2017-11-22 12:23 | NM ---
RADIONUCLIDE STRESS REST MYOCARDIAL PERFUSION SCAN WITH CT ATTENUATION CORRECTION AND SPECT IMAGING LEFT VENTRICULAR WALLMOTION EVALUATION AND EJECTION FRACTION: History: Chest pain. FINDINGS: Lexiscan protocol was used. There is heterogeneous uptake of radiotracer throughout the left ventricu lar myocardium on the stress and rest images. No focal perfusion defect or reversibility are visible. QGS analysis of gated spect images shows no focal wall motion abnormalities. Left ventricular ejecti on fraction is calculated at 60%. IMPRESSION: Normal myocardial perfusion scan. Normal LVEF. POS: REBA
--- NOTE | 2017-11-22 13:11 | PDOC.PN ---
- Subjective Encounter Start Date: 11/22/17 Encounter Start Time: 10:50 Subjective: no sob, feels better - Objective Resuscitation Status: Resuscitation Status FULL:Full Resuscitation MAR Reviewed: Yes Vital Signs & Weight: Vital Signs (12 hours) Temp Pulse Resp BP Pulse Ox 11/22/17 12:53 92 18 11/22/17 12:25 97 F L 79 24 H 159/85 H 88 L 11/22/17 09:01 79 20 91 L 11/22/17 08:00 97.6 F 72 24 H 113/88 90 L 11/22/17 07:55 98.4 F 72 22 H 95 11/22/17 04:10 98.4 F 72 22 H 118/69 99 11/22/17 02:03 83 16 144/78 H 88 L Weight Weight 351 lb 10.197 oz I&O: 11/21/17 11/22/17 11/23/17 06:59 06:59 06:59 Intake Total 3100 1500 Output Total 2325 1450 Balance 775 50 Result Diagrams: 11/22/17 09:03 11/22/17 09:03 Additional Labs: Accuchecks 11/22/17 11/21/17 11/21/17 06:02 20:06 17:37 POC Glucose 130 H 290 H 328 H Phys Exam - Physical Examination HEENT: PERRLA, moist MMs Neck: no JVD, supple Respiratory: no wheezing, no rales Cardiovascular: RRR, no significant murmur Gastrointestinal: soft, non-tender, positive bowel sounds Musculoskeletal: pulses present, edema present Neurological: non-focal, moves all 4 limbs Psychiatric: A&O x 3 Dx/Plan (1) JEANETTE (acute kidney injury) Code(s): N17.9 - ACUTE KIDNEY FAILURE, UNSPECIFIED Status: Resolved (2) CHF (congestive heart failure) Code(s): I50.9 - HEART FAILURE, UNSPECIFIED Status: Chronic Qualifiers: Congestive heart failure type: diastolic (3) Morbid obesity Code(s): E66.01 - MORBID (SEVERE) OBESITY DUE TO EXCESS CALORIES Status: Chronic (4) Acute respiratory failure with hypoxia Code(s): J96.01 - ACUTE RESPIRATORY FAILURE WITH HYPOXIA Status: Acute Comment: resolving (5) COPD exacerbation Code(s): J44.1 - CHRONIC OBSTRUCTIVE PULMONARY DISEASE W (ACUTE) EXACERBATION Status: Acute (6) Obesity hypoventilation syndrome Code(s): E66.2 - MORBID (SEVERE) OBESITY WITH ALVEOLAR HYPOVENTILATION Status : Chronic (7) DM type 2 (diabetes mellitus, type 2) Status: Chronic Qualifiers: Diabetes mellitus complication status: with hyperglycemia Diabetes mellitus alf insulin use: with alf use Qualified Code(s): E11.65 - Type 2 diabetes mellitus with hyperglycemia; Z79.4 - USP (current) use of insulin; Z79.4 - USP (current) use of insulin; Z79.4 - director long term care ( current) use of insulin; Z79.4 - USP (current) use of insulin (8) Hypertension Code(s): I10 - ESSENTIAL (PRIMARY) HYPERTENSION Status: Chronic Qualifiers: Hypertension type: essential hypertension Qualified Code(s): I10 - Essential (primary) hypertension (9) CÉSAR (obstructive sleep apnea) Code(s): G47.33 - OBSTRUCTIVE SLEEP APNEA (ADULT) (PEDIATRIC) Status: Chronic (10) Demand ischemia of myocardium Code(s): I24.8 - OTHER FORMS OF ACUTE ISCHEMIC HEART DISEASE Status: Acute - Plan is on omnicef, nebs and oral prednisone -: lasix iv daily, diabetes is stabilizing with steroid taper -: renal function is back to baseline -: to amb as tolerated -: dc planning, pt to use her cpap at night * . Review of Systems - Medications/Allergies Allergies/Adverse Reactions: Allergies Allergy/AdvReac Type Severity Reaction Status Date / Time No Known Allergies Allergy Verified 11/20/17 18:45 Medications: Current Medications Acetaminophen (Tylenol) 650 mg PO Q4H PRN PRN Reason: Headache/Fever or Pain Last Admin: 11/21/17 03:12 Dose: 650 mg Albuterol/Ipratropium (Duoneb) 3 ml NEB [id number] [facility] Last Admin: 11/22/17 12:53 Dose: 3 ml Aspirin (Aspirin) 325 mg PO DAILY [facility] Last Admin: 11/22/17 09:11 Dose: 325 mg Carvedilol (Coreg) 3.125 mg PO BID [facility] Last Admin: 11/22/17 12:14 Dose: Not Given Cefdinir (Omnicef) 600 mg PO DAILY [facility] Last Admin: 11/22/17 09:11 Dose: 600 mg Citalopram Hydrobromide (Celexa) 40 mg PO DAILY [facility] Last Admin: 11/22/17 09:11 Dose: 40 mg Clopidogrel Bisulfate (Plavix) 75 mg PO DAILY [facility] Last Admin: 11/22/17 09:11 Dose: 75 mg Dextrose/Water (Dextrose 50%) 25 gm IVP PRN PRN PRN Reason: HYPOGLYCEMIA PROTOCOL Famotidine (Pepcid) 20 mg PO BID [facility] Last Admin: 11/22/17 09:11 Dose: 20 mg Furosemide (Lasix) 40 mg SLOW IVP 0600 [facility] Last Admin: 11/22/17 06:41 Dose: 40 mg Gabapentin (Neurontin) 300 mg PO BID [facility] Last Admin: 11/22/17 09:11 Dose: 300 mg Glucagon (Glucagon) 1 mg IM PRN PRN PRN Reason: HYPOGLYCEMIA PROTOCOL Guaifenesin/Dextromethorphan (Robitussin Dm) 15 ml PO Q4H PRN PRN Reason: Cough Heparin Sodium (Porcine) (Heparin) 5,000 units SC TID [facility] Last Admin: 11/22/17 09:10 Dose: 5,000 units Dextrose/Water (D5w) 1,000 mls @ 0 mls/hr IV INF PRN; As Directed PRN Reason: HYPOGLYCEMIA PROTOCOL Insulin Detemir 30 units/ (Miscellaneous Medication) 0.3 mls @ 0 mls/hr SC BID [facility] Last Admin: 11/22/17 12:15 Dose: Not Given Insulin Human Lispro (Humalog) 0 units SC .AGGRESSIVE SLIDING PRN; Protocol PRN Reason: AGGRESSIVE SLIDING SCALE Last Admin: 11/21/17 17:42 Dose: 11 unit Insulin Human Lispro (Humalog) 0 units SC .BEDTIME SLIDING SC PRN; Protocol PRN Reason: BEDTIME SLIDING SCALE Last Admin: 11/21/17 20:06 Dose: 3 unit Levothyroxine Sodium (Synthroid) 75 mcg PO 0600 [facility] Last Admin: 11/22/17 06:41 Dose: 75 mcg Prednisone (Prednisone) 20 mg PO DAILY [facility] Stop: 11/23/17 09:01 Last Admin: 11/22/17 09:11 Dose: 20 mg Rosuvastatin Calcium (Crestor) 20 mg PO HS [facility] Last Admin: 11/21/17 20:08 Dose: 20 mg Senna (Senokot) 2 tab PO HSPRN PRN PRN Reason: Constipation Sodium Chloride (Flush - Normal Saline) 10 ml IVF Q12HR [facility] Last Admin: 11/22/17 09:12 Dose: 10 ml Sodium Chloride (Flush - Normal Saline) 10 ml IVF PRN PRN PRN Reason: Saline Flush Tramadol HCl (Ultram) 50 mg PO Q6H PRN PRN Reason: Moderate Pain (4-6) Last Admin: 11/22/17 09:18 Dose: 50 mg
[2017-11-22] MEDS: Rosuvastatin 20 MG TAB PO SCH (20:59)
[2017-11-22] MEDS: Acetaminophen 325 MG TAB PO PRN (21:18)
[2017-11-23] MEDS: Furosemide 40 MG/4 ML VIAL SLOW IVP SCH ×2 (06:20→14:40)
[2017-11-23] MEDS: Levothyroxine Sodium 75 MCG TAB PO SCH (06:20)
[2017-11-23 06:24] LABS: Anion Gap 15 mmol/L (10-20); BUN (Urea Nitrogen) 28 mg/dL (9.8-20.1); Calc. Creatinine Clearance 167 mL/min (70-130); Calcium 9.5 mg/dL (7.8-10.44); Carbon Dioxide 26 mmol/L (22-29); Chloride 102 mmol/L (98-107); Estimated GFR-MDRD 64; Glucose 173 mg/dL (70-105); Potassium 4.5 mmol/L (3.5-5.1); Sodium 138 mmol/L (136-145)
[2017-11-23] MEDS: Aspirin 325 MG TAB PO SCH (09:17)
[2017-11-23] MEDS: Carvedilol 3.125 MG TAB PO SCH ×2 (09:19→21:23)
[2017-11-23] MEDS: Gabapentin 300 MG CAP PO SCH ×2 (09:19→21:23)
[2017-11-23] MEDS: Cefdinir 300 MG CAP PO SCH (09:19)
[2017-11-23] MEDS: Clopidogrel Bisulfate 75 MG TAB PO SCH (09:19)
[2017-11-23] MEDS: Heparin 5,000 UNITS/ML VIAL SC SCH ×3 (09:20→21:22)
[2017-11-23] MEDS: predniSONE 20 MG TAB PO SCH (09:20)
[2017-11-23] MEDS: Famotidine 20 MG TAB PO SCH (09:20)
[2017-11-23] MEDS: Insulin Detemir 100 UNITS/ML 30 UNITS in Pre-Filled Syringe 1 EACH SC SCH ×2 (09:22→21:23)
[2017-11-23] MEDS: Lisinopril 10 MG TAB PO SCH (09:26)
[2017-11-23] MEDS: Citalopram 20 MG TAB PO SCH (09:27)
[2017-11-23] MEDS: traMADol HCl 50 MG TAB PO PRN (10:16)
[2017-11-23] MEDS: HumaLOG 300 UNITS/3 ML VIAL SC PRN ×2 (11:52→18:11)
--- NOTE | 2017-11-23 15:42 | PRG ---
DATE OF SERVICE: 11/23/2017 SERVICE: Pulmonary Medicine. INTERVAL HISTORY: The patient is doing really well from a respiratory standpoint. She is breathing comfortably. She used her CPAP last night only for about 2 hours. She has a residual AHI of 9.7. M y suspicion is that she may need slightly higher pressures. Otherwise, there has been no interval ch reji to her condition. Her lower extremity swelling is improving, but she still laments the idea felicitas t there is some swelling there. I did explain to her that it is going to take a little time for the water to go away and that if we get too aggressive taking it off we could injure the kidneys. She do es appreciate that and is going to be patient. PHYSICAL EXAMINATION: VITAL SIGNS: Afebrile, pulse 76, blood pressure 143/85, respirations 20, saturation 91% on 2 liters nasal cannula. GENERAL: Patient is awake, alert, in no apparent distress. LUNGS: Excellent air entry. This is much improved compared to presentation. The wheezing is comple tely gone. Minimal crackles are still present, but there are no rhonchi. HEART: Normal rate, regular. ABDOMEN: Soft, nontender, nondistended. Bowel sounds are positive. MUSCULOSKELETAL: No cyanosis or clubbing. There is 1-2+ pitting in the bilateral lower extremities, which is a little bit worse in the right leg, which she hangs off the bed. LABORATORY DATA: Creatinine 0.90. Basic metabolic profile is otherwise unremarkable. BUN 28 and do wn trending nicely. Blood cultures are negative x2. ASSESSMENT: 1. Acute hypoxic respiratory failure. 2. Acute on chronic diastolic heart failure. 3. Morbid obesity. 4. Obstructive sleep apnea, very likely. 5. Acute kidney injury, resolved. PLAN: We will continue to diurese the patient until she returns euvolemia. Oxygen will be weaned aw ay as tolerated. I would love for her to undergo polysomnogram and pulmonary function studies in the outpatient setting, so that we can further clarify her underlying lung process and get her on the [facility] level of CPAP. She admits to me today that she was given the CPAP by her daughter, who took it f rom a friend of hers. That person it was taken from is requesting for the CPAP to be returned. The patient absolutely will not be doing so as she has told me. She suggested to me that he has insuranc e and ability to buy a new one and she does not. It is an auto titrating CPAP. My suspicion is that the patient truly needs BiPAP in the outpatient setting. Steroids have been discontinued. We will start up inhaled Dulera starting tomorrow.
[2017-11-23] MEDS: metFORMIN 500 MG TAB PO SCH (16:24)
[2017-11-23] MEDS: Acetaminophen 325 MG TAB PO PRN (16:24)
--- NOTE | 2017-11-23 16:48 | PDOC.PN ---
- Subjective Encounter Start Date: 11/23/17 Encounter Start Time: 16:40 Subjective: f/u for acute hypoxic resp failure and diastolic CHF. Tolerating CPAP and -: overall improved. Residual LE edema. Weight fluctuating 331-351lb? - Objective Resuscitation Status: Resuscitation Status FULL:Full Resuscitation MAR Reviewed: Yes Vital Signs & Weight: Vital Signs (12 hours) Temp Pulse Resp BP BP Pulse Ox 11/23/17 13:00 93 18 11/23/17 12:09 98.2 F 76 20 143/85 H 91 L 11/23/17 09:26 140/90 11/23/17 08:26 98.0 F 91 18 132/97 H 93 L 11/23/17 08:00 98.0 F 91 18 93 L 11/23/17 07:23 94 L 11/23/17 07:17 84 16 11/23/17 05:01 96 Weight Weight 341 lb 2 oz I&O: 11/22/17 11/23/17 11/24/17 06:59 06:59 06:59 Intake Total 1500 740 Output Total 1450 1100 Balance 50 -360 Result Diagrams: 11/22/17 09:03 11/23/17 04:47 Additional Labs: Accuchecks 11/23/17 11/23/17 11/22/17 11:38 05:50 21:04 POC Glucose 161 H 136 H 210 H Microbiology 11/20/17 09:47 Venous blood - Right Arm Blood Culture - Preliminary NO GROWTH AT 48 HOURS 11/20/17 09:42 Venous blood - Left Arm Blood Culture - Preliminary NO GROWTH AT 48 HOURS Radiology Reviewed by me: Yes (Echo - EF 55-60%, diast dysfuction) EKG Reviewed by me: Yes (Tele - SR in 80's) Phys Exam - Physical Examination Constitutional: NAD HEENT: PERRLA, oral pharynx no lesions Neck: no nodes, no JVD, supple Respiratory: clear to auscultation bilateral Cardiovascular: RRR Gastrointestinal: soft, non-tender, no distention, positive bowel sounds mild LE edema Musculoskeletal: pulses present Neurological: normal sensation, moves all 4 limbs Psychiatric: A&O x 3 Skin: normal turgor, cap refill <2 seconds Dx/Plan (1) Acute respiratory failure with hypoxia Code(s): J96.01 - ACUTE RESPIRATORY FAILURE WITH HYPOXIA Status: Acute Comment: Improving, continue CPAP nocturnally, Dulera, O2 NC (2) CHF (congestive heart failure) Code(s): I50.9 - HEART FAILURE, UNSPECIFIED Status: Chronic Qualifiers: Congestive heart failure type: diastolic Comment: Continue Lasix 40mg IV q12h (3) DM type 2 (diabetes mellitus, type 2) Status: Chronic Qualifiers: Diabetes mellitus complication status: with hyperglycemia Diabetes mellitus equipment operator intermodal yard insulin use: with prison use Qualified Code(s): E11.65 - Type 2 diabetes mellitus with hyperglycemia; Z79.4 - intermediate (current) use of insulin; Z79.4 - intermediate (current) use of insulin; Z79.4 - predatory animal exterminator ( current) use of insulin; Z79.4 - predatory animal exterminator (current) use of insulin (4) Morbid obesity Code(s): E66.01 - MORBID (SEVERE) OBESITY DUE TO EXCESS CALORIES Status: Chronic (5) Obesity hypoventilation syndrome Code(s): E66.2 - MORBID (SEVERE) OBESITY WITH ALVEOLAR HYPOVENTILATION Status : Chronic Comment: Home CPAP/BiPAP, outpt sleep study (6) JEANETTE (acute kidney injury) Code(s): N17.9 - ACUTE KIDNEY FAILURE, UNSPECIFIED Status: Resolved Comment : Resolved (7) Hypertension Code(s): I10 - ESSENTIAL (PRIMARY) HYPERTENSION Status: Chronic Qualifiers: Hypertension type: essential hypertension Qualified Code(s): I10 - Essential (primary) hypertension Comment: Stable - Plan continue antibiotics, PT/OT, bilingual social worker, respiratory therapy, out of bed/ ambulate, DVT proph w/SCDs Stable overall -: Continue Lasix 40mg IV q12h -: Continue ASA, Coreg and Plavix -: Dulera 2 puffs BID -: AM lab: BMP * Peridex SSP BID * Likely home in am
[2017-11-23] MEDS: Mometasone/Formoterol 120 PUFF INHALER INH SCH (20:00)
[2017-11-23] MEDS: Chlorhexidine Gluconate 15 ML UDCUP SSP SCH (21:22)
[2017-11-23] MEDS: Rosuvastatin 20 MG TAB PO SCH (21:23)
[2017-11-24] MEDS: Furosemide 40 MG/4 ML VIAL SLOW IVP SCH (05:23)
[2017-11-24] MEDS: Levothyroxine Sodium 75 MCG TAB PO SCH (05:23)
[2017-11-24 05:26] LABS: Anion Gap 15 mmol/L (10-20); BUN (Urea Nitrogen) 25 mg/dL (9.8-20.1); Calc. Creatinine Clearance 172 mL/min (70-130); Calcium 9.4 mg/dL (7.8-10.44); Carbon Dioxide 30 mmol/L (22-29); Chloride 100 mmol/L (98-107); Estimated GFR-MDRD 68; Glucose 124 mg/dL (70-105); Potassium 4.2 mmol/L (3.5-5.1); Sodium 141 mmol/L (136-145)
[2017-11-24] MEDS: Aspirin 325 MG TAB PO SCH (07:59)
[2017-11-24] MEDS: Clopidogrel Bisulfate 75 MG TAB PO SCH (07:59)
[2017-11-24] MEDS: Cefdinir 300 MG CAP PO SCH (07:59)
[2017-11-24] MEDS: metFORMIN 500 MG TAB PO SCH (07:59)
[2017-11-24] MEDS: traMADol HCl 50 MG TAB PO PRN ×2 (08:00→13:12)
[2017-11-24] MEDS: Lisinopril 10 MG TAB PO SCH (08:00)
[2017-11-24] MEDS: Heparin 5,000 UNITS/ML VIAL SC SCH ×2 (08:00→15:10)
[2017-11-24] MEDS: Carvedilol 3.125 MG TAB PO SCH (08:00)
[2017-11-24] MEDS: Gabapentin 300 MG CAP PO SCH (08:00)
[2017-11-24] MEDS ORDERED: Carvedilol 6.25 MG TAB PO SCH (09:00)
[2017-11-24] MEDS ORDERED: Lisinopril 20 MG TAB PO SCH (09:00)
[2017-11-24] MEDS: Mometasone/Formoterol 120 PUFF INHALER INH SCH (09:25)
[2017-11-24] MEDS: Chlorhexidine Gluconate 15 ML UDCUP SSP SCH (09:38)
[2017-11-24] MEDS: Insulin Detemir 100 UNITS/ML 30 UNITS in Pre-Filled Syringe 1 EACH SC SCH (09:38)
--- NOTE | 2017-11-24 11:27 | PDOC.PN ---
- Subjective Encounter Start Date: 11/24/17 Encounter Start Time: 11:25 Subjective: f/u for acute/chronic resp failure and diastolic CHF exacerbation on -: Lasix 40mg IV q12h. Still with edema of LE's but diuresing per -: nursing. Feels ok overall. - Objective Resuscitation Status: Resuscitation Status FULL:Full Resuscitation MAR Reviewed: Yes Vital Signs & Weight: Vital Signs (12 hours) Temp Pulse Resp BP BP Pulse Ox 11/24/17 09:25 87 20 92 L 11/24/17 08:00 98.8 F 82 18 180/97 H 180/97 H 90 L 11/24/17 07:00 92 L 11/24/17 04:00 98.4 F 74 18 156/84 H 92 L Weight Weight 341 lb 3 oz I&O: 11/23/17 11/24/17 11/25/17 06:59 06:59 06:59 Intake Total 740 2160 Output Total 1100 3625 Balance -360 -2761 Result Diagrams: 11/22/17 09:03 11/24/17 04:20 Additional Labs: Accuchecks 11/24/17 11/23/17 11/23/17 05:37 20:58 17:11 POC Glucose 113 H 184 H 234 H 11/23/17 11:38 POC Glucose 161 H EKG Reviewed by me: Yes (Tele - SR in 60's) Phys Exam - Physical Examination Constitutional: NAD HEENT: PERRLA, oral pharynx no lesions Neck: no JVD, supple diminished in bases Respiratory: no wheezing Cardiovascular: RRR Gastrointestinal: soft, non-tender, no distention, positive bowel sounds Musculoskeletal: pulses present, edema present Neurological: normal sensation, moves all 4 limbs Psychiatric: A&O x 3 Skin: normal turgor, cap refill <2 seconds Dx/Plan (1) Acute respiratory failure with hypoxia Code(s): J96.01 - ACUTE RESPIRATORY FAILURE WITH HYPOXIA Status: Acute Comment: Improving, continue CPAP nocturnally, Dulera, O2 NC (2) CHF (congestive heart failure) Code(s): I50.9 - HEART FAILURE, UNSPECIFIED Status: Chronic Qualifiers: Congestive heart failure type: diastolic Comment: Increase Lasix 80mg IV q12h (3) DM type 2 (diabetes mellitus, type 2) Status: Chronic Qualifiers: Diabetes mellitus complication status: with hyperglycemia Diabetes mellitus retirement insulin use: with retirement use Qualified Code(s): E11.65 - Type 2 diabetes mellitus with hyperglycemia; Z79.4 - intermission coordinator (current) use of insulin; Z79.4 - halfway (current) use of insulin; Z79.4 - intermission coordinator ( current) use of insulin; Z79.4 - halfway (current) use of insulin (4) Morbid obesity Code(s): E66.01 - MORBID (SEVERE) OBESITY DUE TO EXCESS CALORIES Status: Chronic (5) Obesity hypoventilation syndrome Code(s): E66.2 - MORBID (SEVERE) OBESITY WITH ALVEOLAR HYPOVENTILATION Status : Chronic Comment: Home CPAP/BiPAP, outpt sleep study (6) JEANETTE (acute kidney injury) Code(s): N17.9 - ACUTE KIDNEY FAILURE, UNSPECIFIED Status: Resolved Comment : Resolved (7) Hypertension Code(s): I10 - ESSENTIAL (PRIMARY) HYPERTENSION Status: Chronic Qualifiers: Hypertension type: essential hypertension Qualified Code(s): I10 - Essential (primary) hypertension Comment: Stable - Plan * .
[2017-11-24 11:47] VITALS: BP 175/93; TEMP 98.2
--- NOTE | 2017-11-24 13:38 | PRG ---
DATE OF SERVICE: 11/24/2017 SERVICE: Pulmonary Medicine INTERVAL HISTORY: The patient is feeling fantastic today. She is breathing very comfortably. She h as no specific complaints of fevers, chills, nausea, vomiting or diarrhea. Lower extremity edema is much improved. She continues to use her CPAP machine and actually really enjoyed the adjustment that we made for her yesterday. Otherwise, she is returning to her usual state of health. PHYSICAL EXAMINATION: VITAL SIGNS: Afebrile, pulse 83, blood pressure 175/93, respirations 18, saturation 90% on 2 liters nasal cannula. GENERAL: The patient is awake, alert, no apparent distress. LUNGS: Decreased air entry with no prolonged expiratory phase. I do not appreciate any wheezing or rhonchi. Crackles are much improved. HEART: Normal rate, regular. ABDOMEN: Soft, nontender, nondistended. Bowel sounds are positive. MUSCULOSKELETAL: No cyanosis or clubbing. There is 1-2+ pitting in the bilateral lower extremities. NEUROLOGIC: Grossly nonfocal. LABORATORY DATA: Bicarbonate 30. Basic metabolic profile is otherwise unremarkable. Creatinine has improved to 0.85. Blood cultures x2 are unremarkable. ASSESSMENT: 1. Acute hypoxic respiratory failure. 2. Acute on chronic diastolic heart failure. 3. Morbid obesity. 4. Obstructive sleep apnea, likely. 5. Acute kidney injury, resolved. PLAN: The patient is doing really well from a respiratory standpoint. From my perspective, she kenyetta ins stable for transition out of the hospital. She will return to clinic to see me as previously dir ected, but she has already indicated to me that she will not undergo a polysomnogram, or any formal p ulmonary function testing. I think it is reasonable to continue her inhalers as previously directed. That being said, I have discussed with her that she probably does not have asthma or COPD and ultim ately long-term she may not require these things after she loses a significant portion of her weight.
[2017-11-24] MEDS ORDERED: Furosemide 100 MG/10 ML VIAL SLOW IVP SCH (14:00)
--- NOTE | 2017-11-24 18:42 | DIS ---
DATE OF ADMISSION: 11/20/2017 DATE OF DISCHARGE: 11/24/2017 DISCHARGE DIAGNOSES: 1. Acute on chronic hypoxemic respiratory failure with oxygen supplementation at 2 liters per minute by nasal cannula. 2. Acute on chronic diastolic congestive heart failure with ejection fraction of 55-60%, improved. 3. Diabetes mellitus type 2, insulin requiring. 4. Morbid obesity. 5. Obesity hypoventilation syndrome. 6. Obstructive sleep apnea. 7. Acute kidney injury on chronic kidney disease stage 2, resolved. 8. Hypertension, labile. CONSULTATIONS: Dr. Etienne and Karan with Cardiology Service. Dr. Alex with Pulmonology Ser vice. Dr. Bolaños with Nephrology Service. PERTINENT LABORATORY AND X-RAY FINDINGS: Creatinine ranged between 0.85-2.80 with estimated GFR rang ing between 17-68, troponin ranged between 1.078-1.562. BNP 314, total cholesterol 175, triglyceride s 133, HDL 38, LDL 110. Potassium ranged between 4.2-6.0. Blood cultures x2 from 11/20/2017 showed no growth at 48 hours. Portable chest x-ray dated 11/19/2017 showed cardiomegaly. A 2D transthoraci c echocardiogram dated 11/20/2017 showed ejection fraction of 55-60%. Diastolic dysfunction noted. Technically limited study with poor endocardial definition. Bilateral renal ultrasound dated 018 showed negative study. Cardiolite stress test dated 11/21/2017 showed no evidence for reversible or fixed ischemia with calculated ejection fraction of 60%. HOSPITAL COURSE: Patient was admitted to the telemetry unit after initially presenting with respirat ory distress in the context of known chronic hypoxemic respiratory failure on chronic oxygen suppleme ntation at 2 liters per minute by nasal cannula. The patient initially presented with increased resp iratory distress with acute on chronic hypoxemic respiratory failure with questionable influence of c hronic obstructive pulmonary disease and obesity hypoventilation syndrome. The patient was also note d with elevated troponin I with likely demand ischemic state prompting a Cardiology consult. The pat ient was initially managed with nitroglycerin, aspirin and Plavix and given BiPAP noninvasive mechani nate ventilation until stabilization of respiratory status. The patient was also noted with acute kid karla injury, likely multifactorial and iatrogenic in the context of ongoing use of ibuprofen with Lasi x. 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 Patient underwent 2D tra nsthoracic echocardiogram showing diastolic dysfunction and patient was noted with increasing edema a nd weight gain, likely multifactorial with diastolic congestive heart failure in conjunction with acu te kidney injury. Patient was placed on IV diuretic therapy with slow improvement in overall edema. Patient's renal function improved with supportive measures and avoiding nephrotoxic agents with retu rn to baseline renal status by the time of discharge. Patient underwent general cardiac evaluation a fter troponin I was noted elevated performing a Cardiolite stress test showing no evidence of reversi ble or fixed ischemia with overall calculated ejection fraction of 60%. Patient continued to clinica lly improve and transition to the telemetry unit, maintaining O2 saturations in the mid 90% range on 2 liters per minute by nasal cannula. Current recommendations are for outpatient sleep study and con tinue oxygen supplementation after returning home. Overall, the patient remained clinically stable t hroughout the hospital course and ready for discharge on 11/24/2017. DISCHARGE MEDICATIONS: 1. Enteric coated aspirin 81 mg 1 tab p.o. daily. 2. Symbicort 160/4.5 two puffs inhaled b.i.d. 3. Carvedilol 25 mg p.o. b.i.d. 4. Omnicef 600 mg 1 tab p.o. daily x5 days. 5. Vitamin D3 of 1000 units p.o. daily. 6. Plavix 75 mg 1 tab p.o. daily. 7. Lasix 40 mg 2 tabs p.o. b.i.d. x5 days, followed by one tab p.o. b.i.d. 8. Gabapentin 600 mg p.o. b.i.d. 9. Glipizide 10 mg 1 tab p.o. b.i.d. 10. NPH insulin 30 units subcutaneously b.i.d. 11. DuoNebs 3 mL nebulized q.i.d. p.r.n. 12. Levothyroxine 75 mcg 1 tab p.o. daily. 13. Lisinopril 20 mg 1 tab p.o. daily. 14. Metformin 1000 mg p.o. b.i.d. 15. Crestor 20 mg p.o. at bedtime. 16. Coenzyme Q10 of 100 mg p.o. daily. FOLLOWUP: The patient may follow up with [facility] in [place], [place] within 7 days of discharge. The patient may also follow up with Dr. Alex with Pulmonology Service 3-4 weeks after discharge. The patient will follow up with Dr. Bharat Russo in 3-4 weeks after discharge. The patient is also given referral to [facility] on 11/28/2017 and 1:40 p.m. CONDITION ON DISCHARGE: Fair. ACTIVITY: Ad gilson. DIET: Heart healthy and ADA. CODE STATUS: FULL. SPECIAL INSTRUCTIONS: Recommend outpatient sleep study after evaluation by the Pulmonology Service. DISPOSITION: Home, 11/24/2017. Total time preparing and coordinating discharge is 35 minutes.
== END 2017-11-24 16:57 | disposition home or self-care (01) | DRG 189 ==
LOC: ERS 22:36 → ERHOLD 11-20 00:41 → IMCU/EMU 11-20 10:44 → 2NO 11-22 16:34
PROVIDERS: ADMIT Family Medicine; ATTEND Family Medicine
PROC: 5A09457 Assistance with Respiratory Ventilation, 24-96 Consecutive Hours, Continuous Positive Airway Pressure (ICD-10-PCS; principal; 2017-11-20)
DX: J96.21 Acute and chronic respiratory failure with hypoxia (principal); I50.33 Acute on chronic diastolic (congestive) heart failure; G93.40 Encephalopathy, unspecified; N17.9 Acute kidney failure, unspecified; I24.8 Other forms of acute ischemic heart disease; E11.22 Type 2 diabetes mellitus with diabetic chronic kidney disease; Z68.43 Body mass index [BMI] 50.0-59.9, adult; I13.0 Hypertensive heart and chronic kidney disease with heart failure and stage 1 through stage 4 chronic kidney disease, or unspecified chronic kidney disease; E66.2 Morbid (severe) obesity with alveolar hypoventilation; J44.1 Chronic obstructive pulmonary disease with (acute) exacerbation; N18.2 Chronic kidney disease, stage 2 (mild); Z79.4 Long term (current) use of insulin; Z99.81 Dependence on supplemental oxygen; F17.210 Nicotine dependence, cigarettes, uncomplicated; E86.0 Dehydration; E87.5 Hyperkalemia; E11.65 Type 2 diabetes mellitus with hyperglycemia
CPT/HCPCS: 36415; 36416; 71045; 76770; 78452; 80048; 80053; 80061; 81003; 81015; 82553; 83605; 83880; 84484; 85025; 85610; 85730; 87040; 93005; 93017; 93306; 93798; 94640; 94660; 94664; 94760; 96361; 96365; 96366; 96374; 96375; A4216; A9500; G8978-GP-CH; G8979-GP-CH; G8980-GP-CH; J0456; J0696; J1644; J1815; J1940; J1956; J2785; J7050; J7506; J7620

== ENCOUNTER 2022-07-28 11:07 | Emergency (ER) | payer MEDICARE, OTHER ==
[2022-07-28] MEDS ORDERED: Aspirin Chewable 81 MG TAB ONE (11:56)
[2022-07-28 11:57] LABS: #Basophils 0.1 thou/uL (0.0-0.2); #Eosinphils 0.1 thou/uL (0.0-0.7); #Lymphocytes 1.4 thou/uL (1.20-3.40); #Monocytes 0.6 thou/uL (0.11-0.59); #Neutrophils 5.2 thou/uL (1.40-6.50); %Basophils 0.7 % (0.0-1.0); %Eosinophils 1.6 % (0.0-10.0); %Lymphocytes 18.9 % (21.0-51.0); %Monocytes 8.6 % (0.0-10.0); %Neutrophils 70.2 % (42.0-75.0); Hemoglobin 12.5 g/dL (12.0-16.0); Mean Corpuscular HGB CONC 32.4 g/dL (32.0-36.0); Mean Corpuscular Hemoglobin 28.3 pg (27.0-31.0); Mean Corpuscular Volume 87.3 fL (78.0-98.0); Platelet Count 286 thou/uL (130-400); RBC Distribution Width 14.8 % (11.5-14.5); Red Blood Cell (RBC) Count 4.41 mill/uL (4.20-5.40); White Blood Cell (WBC) Count 7.4 thou/uL (4.8-10.8)
[2022-07-28 12:31] LABS: ALT (SGPT) 30 U/L (8-55); AST (SGOT) 27 U/L (5-34); Albumin 4.4 g/dL (3.4-4.8); Alkaline Phosphatase 68 U/L (40-110); Anion Gap 16 mmol/L (10-20); BUN (Urea Nitrogen) 16 mg/dL (9.8-20.1); Bilirubin, Total 0.5 mg/dL (0.2-1.2); CK (CPK) 225 U/L (29-168); Calc. Creatinine Clearance 0 mL/min (70-130); Calcium 9.8 mg/dL (7.8-10.44); Carbon Dioxide 28 mmol/L (23-31); Estimated GFR 59; Globulin 3.4 g/dL (2.4-3.5); Glucose 110 mg/dL (80-115); Protein, Total 7.8 g/dL (5.8-8.1); Sodium 138 mmol/L (136-145)
[2022-07-28 13:02] LABS: Chloride 97 mmol/L (98-107); Potassium 2.9 mmol/L (3.5-5.1)
[2022-07-28 13:17] LABS: Bilirubin Negative (Negative); Blood, Urine Negative (Negative); Clarity Clear (Clear); Glucose, Urine (Dipstick) Normal (Negative); Ketone, Urine Negative (Negative); Leukocyte Negative Leu/uL (Negative); Nitrite Negative (Negative); Protein, Urine (Dipstick) Negative (Neg-Trace); Specific Gravity, Urine 1.015 (1.002-1.036); Urobilinogen Normal mg/dL (Less than 2)
== END 2022-07-28 13:40 | disposition home or self-care (01) ==
LOC: ERS 11:07
DX: I48.91 Unspecified atrial fibrillation (principal); E11.9 Type 2 diabetes mellitus without complications; I10 Essential (primary) hypertension; E78.5 Hyperlipidemia, unspecified; I25.2 Old myocardial infarction; J44.9 Chronic obstructive pulmonary disease, unspecified; Z79.84 Long term (current) use of oral hypoglycemic drugs; Z79.899 Other long term (current) drug therapy
CPT/HCPCS: 71045; 80053; 81003; 82550; 84484; 85025; 93005

== ENCOUNTER 2023-06-16 10:20 | Outpatient (CLI) | payer MEDICARE, OTHER | END 2023-06-16 10:21 | disposition home or self-care (01) | LOC: RAD 10:20 | PROVIDERS: ATTEND Internal Medicine Critical Care Medicine | DX: R06.00 Dyspnea, unspecified (principal) | CPT/HCPCS: 71046 ==

== ENCOUNTER 2023-08-23 11:14 | Outpatient (CLI) | payer MEDICARE, OTHER | END 2023-08-23 11:15 | disposition home or self-care (01) | LOC: BICRAD 11:14 | PROVIDERS: ATTEND Nurse Practitioner Family | DX: M47.816 Spondylosis without myelopathy or radiculopathy, lumbar region (principal); I70.0 Atherosclerosis of aorta; M51.36 Other intervertebral disc degeneration, lumbar region; M25.78 Osteophyte, vertebrae | CPT/HCPCS: 72120 ==

== ENCOUNTER 2023-09-08 12:42 | Outpatient (CLI) | payer MEDICARE, OTHER | END 2023-09-08 12:43 | disposition home or self-care (01) | LOC: SCSMRI 12:42 | PROVIDERS: ATTEND Specialist | DX: M51.16 Intervertebral disc disorders with radiculopathy, lumbar region (principal); M47.816 Spondylosis without myelopathy or radiculopathy, lumbar region; M47.817 Spondylosis without myelopathy or radiculopathy, lumbosacral region | CPT/HCPCS: 72148 ==

== ENCOUNTER 2024-01-17 11:27 | Outpatient (CLI) | payer MEDICARE, OTHER | END 2024-01-17 11:28 | disposition home or self-care (01) | LOC: SCSMRI 11:27 | PROVIDERS: ATTEND Specialist | DX: M50.121 Cervical disc disorder at C4-C5 level with radiculopathy (principal); M50.122 Cervical disc disorder at C5-C6 level with radiculopathy; M50.123 Cervical disc disorder at C6-C7 level with radiculopathy; M48.02 Spinal stenosis, cervical region; G95.89 Other specified diseases of spinal cord | CPT/HCPCS: 72141 ==

== ENCOUNTER 2024-06-22 06:12 | Day surgery (SDC) | payer MEDICARE, OTHER ==
[2024-06-20 12:14] VITALS: BMI 44.4
[2024-06-22] MEDS ORDERED: PROPOFOL 40 ML ONE (07:23)
[2024-06-22] MEDS ORDERED: PROPOFOL 20 ML ONE (07:24)
[2024-06-22] MEDS ORDERED: Lidocaine 2% PF 5 ML VIAL ONE (07:24)
[2024-06-22] MEDS ORDERED: Lidocaine 1% MPF 2 ML VIAL ONE (07:25)
== END 2024-06-22 09:03 | disposition home or self-care (01) ==
LOC: SDC 06:12
PROVIDERS: ATTEND Internal Medicine
PROC: 0DJ08ZZ Inspection of Upper Intestinal Tract, Via Natural or Artificial Opening Endoscopic (ICD-10-PCS; principal; 2024-06-22)
PROC: 0DBK8ZZ Excision of Ascending Colon, Via Natural or Artificial Opening Endoscopic (ICD-10-PCS; 2024-06-22)
PROC: 0DBN8ZZ Excision of Sigmoid Colon, Via Natural or Artificial Opening Endoscopic (ICD-10-PCS; 2024-06-22)
PROC: 0DBH8ZZ Excision of Cecum, Via Natural or Artificial Opening Endoscopic (ICD-10-PCS; 2024-06-22)
DX: Z12.11 Encounter for screening for malignant neoplasm of colon (principal); D12.0 Benign neoplasm of cecum; D12.2 Benign neoplasm of ascending colon; D12.5 Benign neoplasm of sigmoid colon; K57.30 Diverticulosis of large intestine without perforation or abscess without bleeding; K64.8 Other hemorrhoids; K64.4 Residual hemorrhoidal skin tags; J44.9 Chronic obstructive pulmonary disease, unspecified; D64.9 Anemia, unspecified; E66.01 Morbid (severe) obesity due to excess calories; I48.91 Unspecified atrial fibrillation; I11.0 Hypertensive heart disease with heart failure; I50.9 Heart failure, unspecified; F32.A Depression, unspecified; E11.9 Type 2 diabetes mellitus without complications; E07.9 Disorder of thyroid, unspecified; Z98.890 Other specified postprocedural states; Z98.49 Cataract extraction status, unspecified eye; Z79.51 Long term (current) use of inhaled steroids; Z79.82 Long term (current) use of aspirin; Z79.01 Long term (current) use of anticoagulants; Z79.890 Hormone replacement therapy; F17.210 Nicotine dependence, cigarettes, uncomplicated; Z68.41 Body mass index [BMI] 40.0-44.9, adult; Z99.81 Dependence on supplemental oxygen
CPT/HCPCS: 43235; 45385; 82962; J2001; J2704; 36416; 88305